=== PATIENT | female | born 1980 | race Caucasian/White ===

== ENCOUNTER 2019-06-10 13:51 | Emergency (ER) | payer MEDICARE, OTHER ==
[~2019-06-10] VITALS: Ht 175.3 cm; Wt 48.1 kg
--- NOTE | 2019-06-10 15:49 | NUR ---
PT WAS EVALUATED BY DR RETANA AND BY PIERCING SPECIALIST KARL. PT BECOMED AGITATED AND UNCOOPERATIVE AND ELOLPED FROM [facility] ER. DR RETANA NOTIFIED.
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
--- NOTE | 2019-06-10 16:53 | NUR ---
3:25pm: MONSTER called APS worker Neena, , and was unable to connect with her. MONSTER left Neena a voicemail message, asking Neena to call this MONSTER back.
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
--- NOTE | 2019-06-10 17:23 | NUR ---
4:07pm: MONSTER received a call back from APS worker Neena [phone], who stated that the initial APS report is currently assigned to an APS gardening supervisor Dougie, . Neena did not know the APS case report number.
== END 2019-06-10 15:51 | disposition left against medical advice (07) ==
LOC: ER 13:51
DX: F43.9 Reaction to severe stress, unspecified (principal); F41.9 Anxiety disorder, unspecified; F32.9 Major depressive disorder, single episode, unspecified
CPT/HCPCS: A4663